=== PATIENT | female | born 1950 | race Caucasian/White ===

== ENCOUNTER 2024-07-29 20:35 | Emergency (ER) | payer OTHER, BC ==
[2024-07-29 21:13] VITALS: BP 160/93; PULSE 106; RESP 19; TEMP 97.9; BMI 22.8
[2024-07-29] MEDS ORDERED: LIDO 2%/EPI 1:200000 PRESRVFRE (20 ML SDVIAL) ONE (21:21)
[2024-07-29] MEDS ORDERED: DIPHTH,PERTUSS(ACELL),TET 0.5 ML DISP.SYRIN IM ONE (22:25)
[2024-07-29] MEDS ORDERED: DOXYCYCLINE HYCLATE 100 MG CAPSULE PO ONE (22:25)
[2024-07-29] MEDS: DIPHTH,PERTUSS(ACELL),TET 0.5 ML DISP.SYRIN IM ONE (22:29)
[2024-07-29] MEDS: BACITRACIN ZINC 15 GM TUBE TOPICAL OINTMENT TP ONE (22:30)
[2024-07-29] MEDS: DOXYCYCLINE HYCLATE 100 MG CAPSULE PO ONE (22:30)
== END 2024-07-29 22:35 | disposition home or self-care (01) ==
LOC: FER 20:35
PROC: 0HQ1XZZ Repair Face Skin, External Approach (ICD-10-PCS; principal; 2024-07-29)
PROC: 3E0234Z Introduction of Serum, Toxoid and Vaccine into Muscle, Percutaneous Approach (ICD-10-PCS; 2024-07-29)
DX: S01.81XA Laceration without foreign body of other part of head, initial encounter (principal); W10.9XXA Fall (on) (from) unspecified stairs and steps, initial encounter; Z23 Encounter for immunization
CPT/HCPCS: 70450-TC; 72125-TC; 90471; 90715; 94640; 99284-25